=== PATIENT | female | born 1975 | race African-American/Black ===

== ENCOUNTER 2018-02-12 00:31 | Emergency (ER) | payer OTHER ==
[~2018-02-12] VITALS: Ht 157.5 cm; Wt 93.1 kg
[~2018-02-12 00:31] MED LIST: ALEVE PO; HYDROCHLOROTHIA25 MG PO; MEGACE40 MG PO; MOTRIN400 MG PO; NATURAL B-1001 EACH SL; PRENATAL TABLE1 EAC3 PO
[2018-02-12] MEDS ORDERED: AMOXICILLIN500 MG PO (00:36)
[2018-02-12] MEDS ORDERED: NAPROSYN500 MG PO (00:36)
[2018-02-12 00:37] VITALS: BP 192/99
== END 2018-02-12 00:53 | disposition home or self-care (01) ==
LOC: EME 00:31
DX: K08.89 Other specified disorders of teeth and supporting structures (principal)
CPT/HCPCS: 99281; 99283